=== PATIENT | male | born 2000 | race Caucasian/White ===

== ENCOUNTER 2021-06-23 23:41 | Emergency (ER) | payer BC, OTHER ==
[2021-06-24 01:48] LABS: BLOOD UREA NITROGEN,BUN 14 mg/dL (7.0-18.0); CARBON DIOXIDE,CO2 28.2 mmol/L (21.0-32.0); CHLORIDE,CL 103 mmol/L (98-107); GLUCOSE RANDOM 123 mg/dL (74-106); POTASSIUM,K 4.1 mmol/L (3.5-5.1); SODIUM,NA 138 mmol/L (136-148)
== END 2021-06-24 02:40 | disposition home or self-care (01) ==
LOC: MW.ED 23:41
DX: R51.9 Headache, unspecified (principal); Z20.822 Contact with and (suspected) exposure to COVID-19
CPT/HCPCS: 36415; 70450; 70450-26; 80053; 82947; 83605; 83735; 84439; 84443; 85025; 99284-25; U0002

== ENCOUNTER 2024-11-27 11:39 | Emergency (ER) | payer BC, OTHER ==
[2024-11-27] MEDS ORDERED: Sodium Chloride 0.9% 2.5 ML Syringe FLUSH PRN (11:41)
[2024-11-27] MEDS ORDERED: Sodium Chloride 0.9% 10 ML Syringe FLUSH PRN (11:41)
[2024-11-27 11:52] LABS: BASOPHILS ABSOLUTE AUTO 0.03 K/uL (0.00-0.20); BASOPHILS PERCENT AUTO 0.3 % (0.0-1.0); EOSINOPHILS ABSOLUTE AUTO 0.14 K/uL (0.00-0.45); EOSINOPHILS PERCENT AUTO 1.3 % (0.0-6.0); IMMATURE GRAN ABSOLUTE AUTO 0.03 K/uL (0.00-0.05); IMMATURE GRAN PERCENT AUTO 0.3 % (0.0-0.4); LYMPHOCYTES ABSOLUTE AUTO 2.96 K/uL (1.00-4.80); LYMPHOCYTES PERCENT AUTO 26.9 % (24.0-44.0); MEAN PLATELET VOLUME 10.0 fL (9.4-12.4); MONOCYTES ABSOLUTE AUTO 0.73 K/uL (0.00-0.80); MONOCYTES PERCENT AUTO 6.6 % (0.0-8.0); NEUTROPHILS ABSOLUTE AUTO 7.10 K/uL (1.80-7.70); NEUTROPHILS PERCENT AUTO 64.6 % (41.0-71.0); NRBC ABSOLUTE 0.00 K/uL (0.00-0.02); NRBC PERCENT 0.0 /100WBC (0.0-0.2); PLATELET COUNT,PLT 264 K/uL (150-400); RED BLOOD CELL COUNT 5.97 M/uL (4.52-5.90); WHITE BLOOD CELL COUNT,WBC 10.99 K/uL (3.9-11.3)
[2024-11-27] MEDS: Ondansetron 4 MG/2 ML SDV IVPUSH ONE (12:02)
[2024-11-27 12:31] LABS: A/G RATIO 0.9 (0.9-1.6); ALANINE AMINOTRANSFERASE,ALT 49 IU/L (14-63); ASPARTATE AMNIOTRANSFERASE,AST 31 IU/L (15-37); BILIRUBIN TOTAL 0.7 mg/dL (0.2-1.0); BLOOD UREA NITROGEN,BUN 14 mg/dL (7.0-18.0); CARBON DIOXIDE,CO2 27.9 mmol/L (21.0-32.0); CHLORIDE,CL 103 mmol/L (98-107); CHOLESTEROL HDL 42 mg/dL (40-60); CHOLESTEROL LDL CALCULATED 113 mg/dL (60-180); CHOLESTEROL TOTAL 166 mg/dL (50-200); CREATININE 1.0 mg/dL (0.8-1.3); EST CRCL DRUG DOSING (CG) 115.58 mL/min; ETHANOL BLOOD MEDICAL <3 mg/dL; GLUCOSE RANDOM 100 mg/dL (74-106); POTASSIUM,K 4.1 mmol/L (3.5-5.1); PRO B-TYPE NATRIUR PEPT,BNPPRO 32 pg/mL (0-125); PROTEIN TOTAL,TP 8.2 g/dL (6.4-8.2); SODIUM,NA 140 mmol/L (136-148); VLDL CHOLESTEROL 11 mg/dL (5-55)
[2024-11-27 12:35] LABS: APPEARANCE,URINE CLOUDY; GLUCOSE,URINE NEGATIVE (NEGATIVE); OCCULT BLOOD,URINE NEGATIVE (NEGATIVE)
[2024-11-27 12:46] LABS: AMPHETAMINES SCREEN, URINE NEGATIVE (CUTOFF=500); BUPRENORPHINE SCREEN,URINE NEGATIVE (CUTOFF=10); ESTIMATED GFR 106 mL/min (>60); METHADONE SCREEN, URINE NEGATIVE (CUTOFF=200); METHAMPHETAMINES SCREEN, URINE NEGATIVE (CUTOFF=500); OXYCODONE SCREEN,URINE NEGATIVE (CUT0FF=100); PCP SCREEN,URINE NEGATIVE (CUTOFF=25); THC SCREEN,URINE 20 NG/ML NEGATIVE (CUTOFF=50)
== END 2024-11-27 14:58 | disposition home or self-care (01) ==
LOC: MW.ED 11:39
DX: R03.0 Elevated blood-pressure reading, without diagnosis of hypertension (principal); R53.1 Weakness; F41.9 Anxiety disorder, unspecified; K21.9 Gastro-esophageal reflux disease without esophagitis; Z79.899 Other long term (current) drug therapy; Z82.49 Family history of ischemic heart disease and other diseases of the circulatory system
CPT/HCPCS: 36415; 71045; 80053; 80061; 80305; 80307; 81003; 83690; 83735; 83880; 84484; 85025; 93005; 96361; 96374; 99285; J2405; J7030; 93010; 99284